=== PATIENT | male | born 1950 | race Asian ===

== ENCOUNTER 2016-11-11 21:11 | Emergency (ER) | payer MEDICARE, MEDICAID ==
[~2016-11-11] VITALS: Ht 167.6 cm; Wt 72.6 kg
[2016-11-11 21:21] VITALS: BP 113/74
[2016-11-11] MEDS ORDERED: TYLENOL650 MG/20. ORAL (21:23)
[2016-11-11] MEDS ORDERED: COLACE100 MG ORAL (21:24)
[2016-11-11] MEDS ORDERED: ASPIR 8181 MG ORAL (21:24)
[2016-11-11] MEDS ORDERED: VITAMIN B-12100 MCG ORAL (21:29)
[2016-11-11] MEDS ORDERED: DEPAKOTE250 MG PO (21:29)
[2016-11-11] MEDS ORDERED: DULCOLAX10 MG RC (21:31)
[2016-11-11] MEDS ORDERED: FLEET ENEMA133 M1 RC (21:31)
[2016-11-11] MEDS ORDERED: folic acid ORAL (21:32)
[2016-11-11] MEDS ORDERED: PRAVASTATIN SOD20 M1 ORAL (21:33)
[2016-11-11] MEDS ORDERED: MILK OF MA400 MG/51 ORAL (21:33)
[2016-11-11] MEDS ORDERED: XARELTO10 MG ORAL (21:34)
[2016-11-11] MEDS ORDERED: RISPERDAL1 MG PO (21:34)
--- NOTE | 2016-11-11 21:47 | Emergency Room Report ---
History of Present Illness General Chief Complaint: Upper Extremity Injury Source: EMS Present Illness HPI 66 YOM sent from SNF by PMD to eval for swollen/red right hand for ?2-3 days. Per charts from SNF, history of CVA, known right upper extremity contracture, seizure disorder, HTN, atrial fib. Patient not providing additional HPI at this time. Contacted PMD Dr Monroy but no response yet. Allergies: Coded Allergies: No Known Allergies (Unverified , 11/11/16) Patient History Past Medical History: see triage record, old chart reviewed Past Surgical History: unable to obtain Pertinent Family History: unable to obtain Immunizations: UTD Reviewed Nursing Documentation: PMH: Agreed, PSxH: Agreed Nursing Documentation-PMH Hx Hypertension: Yes - HYPERLIPIDEMIA Hx Cerebrovascular Accident: Yes - HEMIPLEGIA Hx Seizures: Yes Review of Systems All Other Systems: negative except mentioned in HPI Physical Exam Vital Signs Date Time Temp Pulse Resp B/P Pulse Ox O2 Delivery O2 Flow Rate FiO2 11/11/16 21:06 97.3 80 14 110/76 97 Room Air Sp02 EP Interpretation: reviewed, abnormal General Appearance: normal inspection, well appearing, no apparent distress, alert, GCS 15 Head: normocephalic, atraumatic Eyes: bilateral eye EOMI, bilateral eye PERRL ENT: normal ENT inspection, hearing grossly normal, normal voice Neck: normal inspection, full range of motion, supple, no bony tend Respiratory: normal inspection, lungs clear, normal breath sounds, no respiratory distress, no retraction, no wheezing Cardiovascular #1: no edema, irregularly irregular Gastrointestinal: normal inspection, normal bowel sounds, non tender, soft, no guarding, no hernia Genitourinary: no CVA tenderness Musculoskeletal: normal inspection, back normal, normal range of motion, Zabrina' s Sign negative, other - Right hand: non-pitting edema/swelling of hand; contracted; I'm able to pull fingers apart but patient cant prevent them from returning to closed/fist position. 2+ distal radius pulse. No swelling or erythema of forearm Neurologic: normal inspection, alert, oriented x3, responsive, public health inspector III-XII nml as tested, motor strength/tone normal, speech normal Psychiatric: normal inspection, judgement/insight normal, mood/affect normal Medical Decision Making Diagnostic Impression: Primary Impression: Swelling of right hand ER Course right hand swelling of unknown duration. VS notable for rate controlled Atrial fib. Afebrile. DDx includes upper extremity DVT, cellulitis, lymphadema. Low suspicion for trauma. Also possibly result of chronic contracture from previous CVA PLAN Labs, sono, reassess EKG Diagnostic Results Rate: other - Atrial Fib ST Segments: no acute changes ASA given to the pt in ED: No Rhythm Strip Diag. Results EP Interpretation: yes Rate: 105 Rhythm: no PVC's, no ectopy Reevaluation Time: 23:05 Last Vital Signs Date Time Temp Pulse Resp B/P Pulse Ox O2 Delivery O2 Flow Rate FiO2 11/11/16 21:21 97.6 114 21 113/74 100 Room Air Status: improved Reevaluation Impression Labs: No leuks. No other abnormalities. D-dimer elevated but right Upper extremity doppler study negative for DVT ECG shows Afib but patient is rate controlled A: Unlikely trauma as no reported trauma. Not a DVT. Unlikely infection as no streaking/erythema, no leuks, patient is afebrile. Possible lymphdema or swelling d/w chronic contracture DC back to [facility] Dr Monroy informed of results Disposition: [facility] [place] DEBI HUGO M.D. Nov 11, 2016 21:47
[2016-11-11 22:22] LABS: BASOPHILS % (AUTO) 1.5 % (0.0-2.0); LYMPHOCYTES % (AUTO) 33.1 % (20.0-45.0); MEAN CORPUSCULAR HEMOGLOBIN 32.1 PG (27.0-31.0); MEAN CORPUSCULAR HGB CONC 33.4 G/DL (32.0-36.0); MEAN CORPUSCULAR VOLUME 96 FL (80-99); MEAN PLATELET VOLUME 6.2 FL (6.5-10.1); MONOCYTES % (AUTO) 9.7 % (1.0-10.0); NEUTROPHILS % (AUTO) 49.8 % (45.0-75.0); PLATELET COUNT 175 K/UL (150-450); RED BLOOD COUNT 5.31 M/UL (4.70-6.10); RED CELL DISTRIBUTION WIDTH 12.6 % (11.6-14.8); WHITE BLOOD COUNT 5.7 K/UL (4.8-10.8)
[2016-11-11 22:30] LABS: ALANINE AMINOTRANSFERASE 35 U/L (3-41); ALBUMIN/GLOBULIN RATIO 1.3 (1.0-2.7); ANION GAP 13 (5-15); ASPARTATE AMINO TRANSFERASE 27 U/L (5-40); CALCIUM 9.7 mg/dL (8.6-10.2); CARBON DIOXIDE 29 mEQ/L (20-30); CHLORIDE 99 mEQ/L (98-107); CREATININE 1.2 mg/dL (0.7-1.2); GLOMERULAR FILTRATION RATE > 60 mL/min (>60); HEMOLYSIS 10; POTASSIUM 4.3 mEQ/L (3.4-4.9); SODIUM 141 mEQ/L (135-145); TOTAL PROTEIN 7.7 g/dL (6.6-8.7)
[2016-11-11 22:41] LABS: CKMB 3.6 ng/mL (< 6.7)
[2016-11-11 23:29] VITALS: BP 104/67
[2016-11-11 23:47] VITALS: BP 104/67
--- NOTE | 2016-11-12 10:15 | Diagnostic Imaging Report ---
Indication: Chest Technique: One view of the chest Comparison: none Findings: Suboptimal inspiration. Some crowding of the bronchovascular markings. No definite acute infiltrates, effusions, or congestion. Normal heart size Impression: No acute process
--- NOTE | 2016-11-13 12:40 | Diagnostic Imaging Report ---
APPROVED REPORT CPT Code: 32675 Present Symptoms Upper Extremity Pain: Right RIGHT UPPER EXTREMITY: Venous imaging reveals patency of the internal jugular, subclavian, axillary and brachial veins. The cephalic and basilic veins are also patent. Doppler indicates normal spontaneous flow within these venous segments.
== END 2016-11-11 23:50 ==
LOC: EDBD 21:11 → EMR 21:42
DX: M79.89 Other specified soft tissue disorders (principal); Z86.73 Personal history of transient ischemic attack (TIA), and cerebral infarction without residual deficits; G40.909 Epilepsy, unspecified, not intractable, without status epilepticus; I10 Essential (primary) hypertension; I48.91 Unspecified atrial fibrillation; E78.5 Hyperlipidemia, unspecified; G81.90 Hemiplegia, unspecified affecting unspecified side
CPT/HCPCS: 36415; 71010; 80053; 82550; 82553; 85025; 85379; 93005; 93970; 99283